=== PATIENT | male | born 1975 | race African-American/Black ===

== ENCOUNTER 2019-11-08 12:33 | Inpatient (IN) | payer OTHER ==
--- NOTE | 2019-11-08 14:05 | ER Document Report ---
ED Medical Screen (RME) - General Chief Complaint: Chest Pain Stated Complaint: COUGHING UP BLOOD Time Seen by Provider: 11/08/19 14:00 Mode of Arrival: Ambulatory Information source: Patient Notes: 44-year-old male presents to ED for right flank/chest pain for a week. He states he has been coughing up some blood. He does have a history of a pulmonary emboli. He does not smoke does drink on weekends does not use any illicit drugs. He is alert oriented respirations regular nonlabored at this time. Blood and CT have been ordered. I have greeted and performed a rapid initial assessment of this patient. A comprehensive ED assessment and evaluation of the patient, analysis of test results and completion of medical decision making process will be conducted by an additional ED providers. TRAVEL OUTSIDE OF THE [place] IN LAST 30 DAYS: No - Related Data Allergies/Adverse Reactions: No Known Allergies Allergy (Verified 11/08/19 13:59) Past Medical History - Past Medical History Cardiac Medical History: Reports: Hx Pulmonary Embolism Past Surgical History: Reports: Hx Orthopedic Surgery - Immunizations Hx Diphtheria, Pertussis, Tetanus Vaccination: No - Patient does not know when his last tetanus shot was Physical Exam - Vital signs Vitals: Temp Pulse Resp BP Pulse Ox 99.0 F 102 H 16 114/65 96 11/08/19 13:06 11/08/19 13:06 11/08/19 13:06 11/08/19 13:06 11/08/19 13:06 Course - Vital Signs Vital signs: Temp Pulse Resp BP Pulse Ox 99.0 F 102 H 16 114/65 96 11/08/19 13:06 11/08/19 13:06 11/08/19 13:06 11/08/19 13:06 11/08/19 13:06
[2019-11-08 15:08] LABS: ABSOLUTE EOSINOPHILS # (AUTO) 0.2 10^3/uL (0.0-0.6); ABSOLUTE LYMPHOCYTES (AUTO) 1.8 10^3/uL (0.5-4.7); ABSOLUTE MONOCYTES (AUTO) 0.8 10^3/uL (0.1-1.4); ABSOLUTE NEUT (AUTO) 5.7 10^3/uL (1.7-8.2); BASOPHILS % (AUTO) 0.4 % (0-2); EOSINOPHILS % (AUTO) 1.9 % (0-6); HEMOGLOBIN 12.8 g/dL (13.5-17.0); LYMPHOCYTES % (AUTO) 20.9 % (13-45); MEAN CORPUSCULAR HEMOGLOBIN 26.1 pg (27.0-33.4); MEAN CORPUSCULAR HGB CONC 32.8 g/dL (32.0-36.0); MEAN CORPUSCULAR VOLUME 79 fl (80-97); MONOCYTES % (AUTO) 9.2 % (3-13); PLATELET COUNT 438 10^3/uL (150-450); RED BLOOD COUNT 4.91 10^6/uL (4.35-5.55); RED CELL DISTRIBUTION WIDTH 15.3 % (11.5-14.0); SEGMENTED NEUTROPHILS % (AUTO) 67.6 % (42-78); TOTAL CELLS COUNTED % (AUTO) 100 %; WHITE BLOOD COUNT 8.5 10^3/uL (4.0-10.5)
[2019-11-08 15:12] LABS: INTERNATIONAL RATION (INR) 1.07; PROTHROMBIN TIME 14.1 SEC (11.4-15.4)
[2019-11-08 15:13] LABS: PARTIAL THROMBOPLASTIN TIME 33.8 SEC (23.5-35.8)
[2019-11-08 15:31] LABS: ALBUMIN 3.8 g/dL (3.5-5.0); ALKALINE PHOSPHATASE 138 U/L (38-126); ANION GAP 7 (5-19); ASPARTATE AMINO TRANSFERASE 68 U/L (17-59); BILIRUBIN,TOTAL 0.8 mg/dL (0.2-1.3); BLOOD UREA NITROGEN 10 mg/dL (7-20); CALCIUM 9.1 mg/dL (8.4-10.2); CARBON DIOXIDE 28 mmol/L (22-30); CHLORIDE 103 mmol/L (98-107); GLUCOSE 100 mg/dL (75-110); POTASSIUM 4.6 mmol/L (3.6-5.0); TOTAL PROTEIN 7.9 g/dL (6.3-8.2)
--- NOTE | 2019-11-08 16:35 | RADIOLOGY REPORT (SQ) ---
EXAM DESCRIPTION: CTA CHEST IMAGES COMPLETED DATE/TIME: 11/08/2019 4:03 pm REASON FOR STUDY: Chest pain right side with hx of pulmonary emboli COMPARISON: None. TECHNIQUE: CT scan of the chest performed using helical scanning technique with dynamic intravenous contrast injection. Images reviewed with lung, soft tissue and bone windows. Reconstructed coronal and sagittal MPR images reviewed. Additional 3 dimensional post-processing performed to develop Maximal Intensity Projection images (GA P). All images stored on PACS. All CT scanners at this facility use dose modulation, iterative reconstruction, and/or weight based d osing when appropriate to reduce radiation dose to as low as reasonably achievable (ALARA). [facility]: Dose Right [facility]: CareDose [facility]: Dose Right [facility]: Teradose 4D [facility]: [employer] CONTRAST TYPE AND DOSE: contrast/concentration: Isovue 350.00 mmol/ml; Total Contrast Delivered: 71. 0 ml; Total Saline Delivered: 40.2 ml Contrast bolus adequate for pulmonary arteries and aorta. RENAL FUNCTION: None required. The patient is less than 50 years old. RADIATION DOSE: CT Rad equipment meets quality standard of care and radiation dose reduction techniq ues were employed. CTDIvol: 13.2 - 21.7 mGy. DLP: 868 mGy-cm. . LIMITATIONS: None. FINDINGS: LUNGS AND PLEURA: Diffuse rounded airspace opacity in a predominantly peripheral distribut ion with an apparent apical basilar gradient. No pleural effusion. No pneumothorax. AORTA AND GREAT VESSELS: No aneurysm. No dissection. HEART: No pericardial effusion. No significant coronary artery calcifications. PULMONARY ARTERIES: Multiple acute segmental to subsegmental pulmonary emboli are seen of the bilater al lower lobes (right more so than left) no central thrombus or intracardiac thrombus demonstrated. No evidence of right heart strain. HILAR AND MEDIASTINAL STRUCTURES: There is a single prominent paraesophageal lymph node at the level of the gastroesophageal junction. No mediastinal masses. HARDWARE: None in the chest. UPPER ABDOMEN: No significant findings. Limited exam. THYROID AND OTHER SOFT TISSUES: No masses. No adenopathy. BONES: No acute or significant finding. 3D MIPS: Confirm above findings. OTHER: No other significant finding. IMPRESSION: 1. Bilateral lower lobe segmental de subsegmental acute pulmonary arterial thrombosis ( right greater than left). 2. This is superimposed upon a background of multifocal peripheral rounded airspace opacities, consi stent with multi lobar pneumonia. Given distribution and appearance, recommend consideration for aty pical etiologies to include viral (to include COVID) in treatment planning. COMMENT: Quality ID # [id number]: Final reports with documentation of one or more dose reduction techniques (e.g., Automated exposure control, adjustment of the mA and/or kV according to patient size, use of iterative reconstruction technique) TECHNICAL DOCUMENTATION: JOB ID: [id number] 2010 [employer]- All Rights Reserved Reading location - IP/workstation name: [email or web address]
[2019-11-08] MEDS ORDERED: AZITHROMYCIN INJ 500 MG VIAL IV ONE (17:17)
[2019-11-08] MEDS ORDERED: CEFTRIAXONE 1 GM/D5W RTU 1 GM/50 ML RTUPB IV ONE (17:17)
[2019-11-08] MEDS ORDERED: HEPARIN SODIUM,PORCINE/D5W 25,000 UNIT/250 ML RTUINJ IV PRN (17:17)
--- NOTE | 2019-11-08 18:07 | ER Document Report ---
ED General - General Chief Complaint: Chest Pain Stated Complaint: COUGHING UP BLOOD Time Seen by Provider: 11/08/19 14:00 Mode of Arrival: Ambulatory Notes: 44 year old male presents to the ED complaining of 1 week of right sided chest pain associated with 2-3 weeks of cough and slight hemoptysis that he describes as small little sprinkles of blood on the tissue. This blood started 1 week ago along with the chest pain. Denies any shortness of breath, denies any fatigue. Admits a small amount of diarrhea. Has not been tested for coronavirus. Patient does have a remote history of a PE provoked by surgery in 2014. Not currently on anticoagulants. TRAVEL OUTSIDE OF THE [place] IN LAST 30 DAYS: No - Related Data Allergies/Adverse Reactions: No Known Allergies Allergy (Verified 11/08/19 13:59) Past Medical History - General Information source: Patient - Social History Smoking Status: Never Smoker Chew tobacco use (# tins/day): No Frequency of alcohol use: Occasional Drug Abuse: None Family History: Reviewed & Not Pertinent - Past Medical History Cardiac Medical History: Reports: Hx Pulmonary Embolism Past Surgical History: Reports: Hx Orthopedic Surgery - Immunizations Hx Diphtheria, Pertussis, Tetanus Vaccination: No - Patient does not know when his last tetanus shot was Review of Systems - Review of Systems Constitutional: No symptoms reported EENT: No symptoms reported Cardiovascular: See HPI, Chest pain Respiratory: See HPI, Cough, Hurts to breathe, Hemoptysis Gastrointestinal: See HPI, Diarrhea -: Yes All other systems reviewed and negative Physical Exam - Vital signs Vitals: Temp Pulse Resp BP Pulse Ox 99.0 F 102 H 16 114/65 96 11/08/19 13:06 11/08/19 13:06 11/08/19 13:06 11/08/19 13:06 11/08/19 13:06 Interpretation: Tachycardic - Notes Notes: GENERAL: Alert, interacts well. No acute distress. HEAD: Normocephalic, atraumatic EYES: Pupils equal, round and reactive to light, extraocular movements intact. ENT: Oral mucosa moist, tongue midline. NECK: Full range of motion, supple, trachea midline. LUNGS: Clear to auscultation bilaterally, no wheezes, rales or rhonchi, no respiratory distress, but complains of pain with deep breathing. HEART: Regular rate and rhythm, no murmurs, gallops, rubs. ABDOMEN: Soft, nontender, nondistended, bowel sounds present in all 4 quadrants. EXTREMITIES: Moves all 4 extremities spontaneously, no edema, radial and dorsalis pedis pulses 2/4 bilaterally. No cyanosis. NEUROLOGICAL: Alert and oriented x3, normal speech. PSYCH: Normal mood, normal affect. SKIN: Warm, Dry, normal turgor. Course - Re-evaluation Re-evalutation: 11/08/19 20:53 CBC shows very mild anemia with hemoglobin 12.8, coags normal, CMP shows elevated LFTs otherwise unremarkable, troponin detectable at 0.022 but this is negative. CTA of the chest shows multiple bilateral pulmonary emboli and pneumonia. Quite suspicious for COVID. Patient is already in isolation. Discussed case with Dr. Giles from the hospitalist service who is concerned that this patient need may need to be transferred to a tertiary center as he is already having some hemoptysis. I did call and discussed the case with Dr. Shearer a morning babysitter at [facility] who stated that pulmonology was not necessary to have in the hospital. He stated he did feel that yes if you start heparin the patient's bleeding may get worse but the treatment for massive hemoptysis in this patient would be intubation to protect his airway not bronchoscopy to localize the place of bleeding. He agrees with starting heparin. States that there would be no role for vascular surgery in this case either. I then called and discussed with Dr. Caal who is the provider engagement executive hospitalist, Dr. Caal is worried that if we start the heparin the patient will develop further hemoptysis and potentially need to be intubated. Requested that I discussed with the ICU. Discussed case with Boyd Murillo the ICU PA who agrees to accept the patient to the account executive agribusiness service for close monitoring for the first 12 hours of heparin. - Vital Signs Vital signs: Temp Pulse Resp BP Pulse Ox 99.0 F 102 H 22 H 107/57 L 97 11/08/19 13:06 11/08/19 13:06 11/08/19 21:03 11/08/19 21:03 11/08/19 21:03 - Laboratory Result Diagrams: 11/08/19 14:49 11/08/19 14:49 Laboratory results interpreted by me: 11/08/19 11/08/19 14:49 14:49 Hgb 12.8 L MCV 79 L MCH 26.1 L RDW 15.3 H AST 68 H ALT 208 H Alkaline Phosphatase 138 H - EKG Interpretation by Me Additional EKG results interpreted by me: 11/08/19 22:29 EKG shows sinus rhythm rate of 83, normal axis, normal intervals, T wave inversi ons in lead II, V3 through V6 per my interpretation. Discharge - Discharge Clinical Impression: Multifocal pneumonia Pulmonary emboli Qualifiers: Pulmonary embolism type: multiple subsegmental (without acute cor pulmonale) Qualified Code(s): I26.94 - Multiple subsegmental pulmonary emboli without acute cor pulmonale Condition: Fair Disposition: ADMITTED INPATIENT Admitting Provider: Apoorva (Fire Hydrant Operator) Unit Admitted: ICU
[2019-11-08] MEDS: HEPARIN SOD (PORCINE) 1,000 UNIT/ML 10 ML VIAL IV ONE ×2 (18:39→18:53)
[2019-11-08] MEDS ORDERED: HEPARIN SOD (PORCINE) 1,000 UNIT/ML 10 ML VIAL IV PRN (20:18)
[2019-11-08 22:37] LABS: APPEARANCE,URINE CLEAR; BILIRUBIN,URINE NEGATIVE (NEGATIVE); COLOR,URINE YELLOW; GLUCOSE, URINE NEGATIVE (NEGATIVE); KETONES,URINE NEGATIVE (NEGATIVE); LEUKOCYTE ESTERASE,URINE NEGATIVE (NEGATIVE); NITRITE,URINE NEGATIVE (NEGATIVE); PROTEIN,URINE NEGATIVE (NEGATIVE); URINE SPECIFIC GRAVITY 1.028; UROBILINOGEN,URINE NEGATIVE mg/dL (<2.0)
--- NOTE | 2019-11-09 02:21 | CRITICAL CARE ADMISSION REPORT ---
HPI Date:: 11/09/19 Time:: 00:00 Reason for ICU Reason:: Pulmonary Embolism, Hemoptysis Admission Date/Time & PCP: Admission Date/Time: 11/08/19 20:39 Primary Care Provider: HPI: 44-year-old male with recent COVID-19 infection diagnosed on 10/21/2019. Patient tolerated treatment at home for COVID-19 but then began to develop right-sided chest pain and what he describes as very mild hemoptysis which started 1 week ago. He decided to seek emergency care due to persistent chest pain. Patient also has a history of a provoked PE following surgery in 2014. He has not been on anticoagulants since. Patient's work-up for his chest pain included a chest CT which showed multiple acute segmental to subsegmental pulmonary emboli in the bilateral lower lobes as well as multifocal opacities consistent with multi lobar pneumonia. Clinically, Mr. Dsouza is stable, in no respiratory distress. He has no oxygen requirements and is asymptomatic other than mild to moderate pleuritic chest pain. He was initially referred to medicine for treatment of his pulmonary embolisms, however, given his risk of bleeding with pre-existing hemoptysis and heparin drip treatment, the Medicine team felt more comfortable with monitoring in the ICU. I have started Mr. Dsouza on a heparin drip and will observe overnight in the ICU for signs of worsening hemoptysis. History obtained from:: Patient, medical records - Diagnosis/Plan (1) Multifocal pneumonia Is this a current diagnosis for this admission?: Yes Plan: Patient was diagnosed with COVID-19 on 10/20/2019. I believe what we are seeing regarding his pneumonia is the convalescence of this viral process. I therefore do not believe that antibiotics are warranted at this time as the patient has been recovering well. (2) Pulmonary emboli Qualifiers: Pulmonary embolism type: multiple subsegmental (without acute cor pulmonale) Qualified Code(s): I26.94 - Multiple subsegmental pulmonary emboli without acute cor pulmonale Is this a current diagnosis for this admission?: Yes Plan: Bilateral lower segmental and subsegmental acute pulmonary embolisms seen on chest CT (right greater than left). No evidence of right heart strain mentioned on CT. Heparin drip ordered in ED. This event is most likely secondary to his [id number] infection as clotting issues seems to be common following this virus. I would therefore consider this a provoked event. PESI score: 52 (positive only for age + male sex) which is considered class I, very low risk. Patient is normotensive. Plan will be to obtain Pro-BNP. If normal, and no other signs of hemodynamic or oxygenation issues, heparin drip can be discontinued and patient can be started on direct anti-coagulant treatment. Past Medical History Cardiac Medical History: Reports: Pulmonary Embolism Psychiatric Medical History: Denies: Depression Hematology: Reports: Sickle Cell Disease Past Surgical History Past Surgical History: Reports: Orthopedic Surgery - ankle surgery, 2015 Social/Family History - Social History Smoking Status: Never Smoker Frequency of Alcohol Use: Social Hx Recreational Drug Use: No Drugs: None Hx Prescription Drug Abuse: No - Medication/Allergies Home Medications: No Home Medications 11/08/19 Allergies/Adverse Reactions: No Known Allergies Allergy (Verified 11/08/19 13:59) Review of Systems Review of Systems: Patient complains of cough and right pleuritic chest pain. He denies shortness of breath, leg or calf pain, and can ambulate comfortably. Constitutional: PRESENT: as per HPI Cardiovascular: PRESENT: chest pain. ABSENT: dyspnea on exertion Respiratory: PRESENT: cough, hemoptysis - Mild hemoptysis Physical Exam Vital Signs: Temp Pulse Resp BP Pulse Ox 99.6 F 93 27 H 127/81 H 97 11/08/19 23:41 11/08/19 23:41 11/08/19 23:41 11/08/19 23:41 11/08/19 23:41 Intake & Output 11/07/19 11/08/19 11/09/19 06:59 06:59 06:59 Intake Total 50 Balance 50 Weight 112 kg Weight/Height Weight 112 kg Height 6 ft 1 in General appearance: PRESENT: no acute distress, cooperative Head exam: PRESENT: atraumatic, normocephalic Eye exam: PRESENT: EOMI, PERRLA Ear exam: PRESENT: normal external ear exam. ABSENT: bleeding, drainage Mouth exam: PRESENT: moist, neck supple, tongue midline Neck exam: PRESENT: full ROM. ABSENT: carotid bruit, JVD Respiratory exam: PRESENT: chest wall tenderness, rhonchi. ABSENT: accessory muscle use Cardiovascular exam: PRESENT: RRR, +S1, +S2 Pulses: PRESENT: normal carotid pulses, +2 pedal pulses bilateral Vascular exam: PRESENT: normal capillary refill GI/Abdominal exam: PRESENT: normal bowel sounds Extremities exam: ABSENT: calf tenderness, joint swelling, pedal edema, tenderness Musculoskeletal exam: PRESENT: ambulatory, full ROM, normal inspection Neurological exam: PRESENT: alert, awake, oriented to person, oriented to place, oriented to time, oriented to situation, CN II-XII grossly intact. ABSENT: motor sensory deficit Psychiatric exam: PRESENT: appropriate affect Skin exam: PRESENT: normal color Laboratory/Radiographs Laboratory Results: 11/08/19 14:49 11/08/19 14:49 11/08/19 11/08/19 11/08/19 14:49 14:49 22:20 WBC 8.5 RBC 4.91 Hgb 12.8 L Hct 39.0 MCV 79 L MCH 26.1 L MCHC 32.8 RDW 15.3 H Plt Count 438 Seg Neutrophils % 67.6 Sodium 138.3 Potassium 4.6 Chloride 103 Carbon Dioxide 28 Anion Gap 7 BUN 10 Creatinine 1.14 Est GFR ( Amer) > 60 Glucose 100 Calcium 9.1 Total Bilirubin 0.8 AST 68 H Alkaline Phosphatase 138 H Total Protein 7.9 Albumin 3.8 Lipase 101.4 Urine Color YELLOW Urine Appearance CLEAR Urine pH 6.0 Ur Specific [place] 1.028 Urine Protein NEGATIVE Urine Glucose (UA) NEGATIVE Urine Ketones NEGATIVE Urine Blood NEGATIVE Urine Nitrite NEGATIVE Ur Leukocyte Esterase NEGATIVE Urine WBC (Auto) 0 11/08/19 14:49 Troponin I 0.022 Impressions: Chest/Abdomen CTA 11/08/19 14:01 IMPRESSION: 1. Bilateral lower lobe segmental de subsegmental acute pulmonary arterial thrombosis (right greater than left). 2. This is superimposed upon a background of multifocal peripheral rounded airspace opacities, consistent with multi lobar pneumonia. Given distribution and appearance, recommend consideration for atypical etiologies to include viral (to include COVID) in treatment planning. All labs, radiographs, diagnostic studies and EKGs were personally reviewed: Yes In addition, reports of radiographic and diagnostic studies were read: Yes Critical Time Critical Time (minutes): 40 -: The care of a critically ill patient is dynamic. This note represents a static moment in the admission process. Orders and treatments may be given sim ultaneously and urgently, and time is not sales representative gas service of the treatment process. This patient requires Critical Care secondary to life threatening organ or limb dysfunction. Without Critical Care services, the patient is at risk for increased mortality and morbidity.
[2019-11-09] MEDS ORDERED: GUAIFENESIN 600 MG TABLET.SA PO ONE (02:57)
[2019-11-09 06:48] LABS: HEMATOCRIT 34.6 % (37.9-51.0); HEMOGLOBIN 11.6 g/dL (13.5-17.0); MEAN CORPUSCULAR HEMOGLOBIN 26.2 pg (27.0-33.4); MEAN CORPUSCULAR HGB CONC 33.6 g/dL (32.0-36.0); MEAN CORPUSCULAR VOLUME 78 fl (80-97); PLATELET COUNT 352 10^3/uL (150-450); RED BLOOD COUNT 4.44 10^6/uL (4.35-5.55); WHITE BLOOD COUNT 8.8 10^3/uL (4.0-10.5)
[2019-11-09 07:15] LABS: ALBUMIN 3.5 g/dL (3.5-5.0); ALKALINE PHOSPHATASE 124 U/L (38-126); ASPARTATE AMINO TRANSFERASE 55 U/L (17-59); BILIRUBIN,DIRECT 0.1 mg/dL (0.0-0.4); BILIRUBIN,TOTAL 0.9 mg/dL (0.2-1.3); BLOOD UREA NITROGEN 9 mg/dL (7-20); CALCIUM 8.8 mg/dL (8.4-10.2); CARBON DIOXIDE 27 mmol/L (22-30); GLUCOSE 108 mg/dL (75-110); POTASSIUM 4.5 mmol/L (3.6-5.0); TOTAL PROTEIN 7.3 g/dL (6.3-8.2)
--- NOTE | 2019-11-09 07:17 | EKG REPORT ---
SEVERITY:- ABNORMAL ECG - SINUS RHYTHM NONSPECIFIC T ABNORMALITIES, ANT-LAT LEADS : Confirmed by: Víctor Sotelo MD 09-Nov-2019 07:16:36
[2019-11-09 07:21] LABS: ANION GAP 5 (5-19); CHLORIDE 104 mmol/L (98-107)
--- NOTE | 2019-11-09 08:03 | RADIOLOGY REPORT (SQ) ---
EXAM DESCRIPTION: CHEST SINGLE VIEW IMAGES COMPLETED DATE/TIME: 11/09/2019 6:16 am REASON FOR STUDY: Pulmonary Embolism, Covid-19 COMPARISON: 11/08/2019 CT EXAM PARAMETERS: NUMBER OF VIEWS: One view. TECHNIQUE: Single frontal radiographic view of the chest acquired. RADIATION DOSE: NA LIMITATIONS: None. FINDINGS: LUNGS AND PLEURA: Known multifocal parenchymal opacities are less conspicuous by radiograp hy. No new focal consolidation. No pleural effusion. No pneumothorax. MEDIASTINUM AND HILAR STRUCTURES: No masses. Contour normal. HEART AND VASCULAR STRUCTURES: Heart normal in size. Normal vasculature. BONES: No acute findings. HARDWARE: None in the chest. OTHER: No other significant finding. IMPRESSION: Given differences in modality, essentially stable pulmonary examination. TECHNICAL DOCUMENTATION: JOB ID: [id number] 2010 [employer]- All Rights Reserved Reading location - IP/workstation name: [email or web address]
[2019-11-09] MEDS ORDERED: APIXABAN 5 MG TABLET PO SCH (10:00)
[2019-11-09] MEDS ORDERED: GUAIFENESIN 600 MG TABLET.SA PO SCH (10:00)
[2019-11-09] MEDS ORDERED: APIXABAN 2.5 MG TABLET PO SCH (10:00)
[2019-11-09] MEDS ORDERED: RIVAROXABAN 10 MG TABLET PO SCH (12:00)
[2019-11-09 14:41] VITALS: BP 109/66
--- NOTE | 2019-11-09 16:15 | XCELERA REPORT ---
[address] [address] Transthoracic Echocardiogram Report Name: PROMISE KWON Age: 44 yrs Gender: Male : 1975 Patient Status: Inpatient Patient Location: ICU^604^A Study Date: 11/09/2019 10:37 AM Height: 73 in Weight: 246 lb BSA: 2.3 m2 Procedure: A two-dimensional transthoracic echocardiogram with color flow and Doppler was performed. Study Quality: Good. Reason For Study: Acute Pulmonary Embolism History: Acute Pulmonary Embolism. Ordering Physician: JADIEL DOUGLAS Performed By: Mirella Mancilla Interpretation Summary The left ventricle is normal in size. There is normal left ventricular wall thickness. LV EF is 65% Left ventricular systolic function is normal. Doppler measurements suggest normal left ventricular diastolic function The left ventricular wall motion is normal. There is no thrombus. No ASD ,VSD ,or PFO seen. The right ventricle is normal in size and function. The right atrium is normal. The left atrial size is normal. There is no evidence of mitral valve prolapse. There is no vegetation seen on the mitral valve. There is a mild amount of mitral regurgitation There is no aortic valve stenosis There is no LVOT obstruction. No aortic regurgitation is present. There is no tricuspid stenosis. There is a mild amount of tricuspid regurgitation Right ventricular systolic pressure is normal. RVSP is 25 to 30 mm of Hg , with RA mean of 0 to 5. There is no pulmonic valvular stenosis. The aortic root is normal size. There is no pericardial effusion. MMode/2D Measurements & Calculations RVDd: 3.6 cm LVIDd: 4.7 cm FS: 36.0 % Ao root diam: 3.5 cm IVSd: 0.91 cm LVIDs: 3.0 cm EDV(Teich): 101.7 ml Ao root area: 9.6 cm2 LVPWd: 0.90 cm ESV(Teich): 35.0 ml LA dimension: 2.6 cm EF(Teich): 65.6 % Doppler Measurements & Calculations MV E max darin: MV P1/2t max darin: Ao V2 max: LV V1 max P.3 cm/sec 95.3 cm/sec 119.4 cm/sec 4.3 mmHg MV A max darin: MV P1/2t: 62.9 msec Ao max P.7 mmHg LV V1 max: 63.2 cm/sec MVA(P1/2t): 3.5 cm2 104.1 cm/sec MV E/A: 1.5 MV dec slope: 443.5 cm/sec2 MV dec time: 0.21 sec PA V2 max: TR max darin: MV P1/2t-pr_phl: 82.9 cm/sec 249.8 cm/sec 62.9 msec PA max PG: TR max P.0 mmHg 2.8 mmHg Left Ventricle The left ventricle is normal in size. There is normal left ventricular wall thickness. LV EF is 65%. Left ventricular systolic function is normal. Doppler measurements suggest normal left ventricular diastolic function. The left ventricular wall motion is normal. There is no thrombus. No ASD ,VSD ,or PFO seen. Right Ventricle The right ventricle is normal in size and function. Atria The right atrium is normal. The left atrial size is normal. Mitral Valve There is no evidence of mitral valve prolapse. There is no vegetation seen on the mitral valve. There is no mitral valve stenosis. There is a mild amount of mitral regurgitation. Aortic Valve There is no aortic valvular vegetation. There is no aortic valve stenosis. There is no LVOT obstruction. No aortic regurgitation is present. Tricuspid Valve There is no tricuspid stenosis. There is a mild amount of tricuspid regurgitation. Right ventricular systolic pressure is normal. RVSP is 25 to 30 mm of Hg , with RA mean of 0 to 5. Pulmonic Valve There is no pulmonic valvular stenosis. There is no pulmonic valvular regurgitation. Great Vessels The aortic root is normal size. The inferior vena cava appeared small and collapsed with respiration (RAP 0-5 mmHg). Effusions There is no pericardial effusion. : JADIEL DOUGLAS, [place]
--- NOTE | 2019-11-09 16:53 | PDOC DISCHARGE SUMMARY ---
Impression - Admit/DC Date/PCP Admission Date/Primary Care Provider: 11/08/19 20:39 Discharge Date: 11/09/19 - Discharge Diagnosis (1) COVID-19 Is this a current diagnosis for this admission?: Yes (2) Pulmonary emboli Is this a current diagnosis for this admission?: Yes - Assessment Summary: This patient is a 44 yo man who says he has had COVID-19 for about 3 weeks. He developed vague chest and back pain yesterday and coughed up flecks of blood in sputum yesterday. He presented to the ED where a CTA showed segmental and subsegmental PEs. No other symptoms. No sign of R heart strain, EKG changes, SOB, dizziness. He was placed in the ICU as the hospitalist did not wish him placed on the regular floor. 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 He was on Xarelto for several months. He was on a heparin drip started in the ED but stopped this AM when he was placed back on Xarelto. He has had an echocardiogram showing no R ht strain. He has follow up and will be sent home om Xarelto - Additional Information Resuscitation Status: Full Code Discharge Diet: Regular Discharge Activity: Activity As Tolerated Prescriptions: Rivaroxaban [Xarelto 10 mg Tablet] 20 mg PO DAILY 30 Days #30 tablet Home Medications: Rivaroxaban [Xarelto 10 mg Tablet] 20 mg PO DAILY 30 Days #30 tablet 11/09/19 History of Present Illiness History of Present Illness: PROMISE KWON is a 44 year old male with history of PEs has new segmental and subsegmental PEs from COVID-19 diagnosed about 3 weeks ago. Minor hemoptysis no recurrence Hospital Course Hospital Course: He was initially on a heparin drip changed to Xarelto. On RA, No SOB, No cough, no pain able to walk without symptoms. Will be treated at home with Xarelto. Physical Exam Vital Signs: Temp Pulse Resp BP Pulse Ox 98.6 F 71 19 109/66 96 11/09/19 07:41 11/09/19 07:30 11/09/19 14:31 11/09/19 14:31 11/09/19 14:31 Intake & Output 11/08/19 11/09/19 11/10/19 06:59 06:59 06:59 Intake Total 50 188 Output Total 129 783 Balance -575 -562 Weight 112 kg General appearance: PRESENT: no acute distress, cooperative Head exam: PRESENT: atraumatic, normocephalic Eye exam: PRESENT: conjunctiva pink, EOMI, PERRLA. ABSENT: scleral icterus Ear exam: PRESENT: normal external ear exam Mouth exam: PRESENT: moist, tongue midline Respiratory exam: PRESENT: clear to auscultation bill. ABSENT: rales, rhonchi, wheezes Cardiovascular exam: PRESENT: RRR. ABSENT: diastolic murmur, rubs, systolic murmur GI/Abdominal exam: PRESENT: normal bowel sounds, soft. ABSENT: distended, guarding, mass, organolmegaly, rebound, tenderness Rectal exam: PRESENT: deferred Extremities exam: PRESENT: full ROM. ABSENT: calf tenderness, clubbing, pedal edema Musculoskeletal exam: PRESENT: normal inspection Neurological exam: PRESENT: alert, awake, oriented to person, oriented to place, oriented to time, oriented to situation, CN II-XII grossly intact. ABSENT: motor sensory deficit Psychiatric exam: PRESENT: appropriate affect, normal mood. ABSENT: homicidal ideation, suicidal ideation Skin exam: PRESENT: dry, intact, warm. ABSENT: cyanosis, rash Results Laboratory Results: WBC 8.8 10^3/uL (4.0-10.5) 11/09/19 06:40 RBC 4.44 10^6/uL (4.35-5.55) 11/09/19 06:40 Hgb 11.6 g/dL (13.5-17.0) L 11/09/19 06:40 Hct 34.6 % (37.9-51.0) L 11/09/19 06:40 MCV 78 fl (80-97) L 11/09/19 06:40 MCH 26.2 pg (27.0-33.4) L 11/09/19 06:40 MCHC 33.6 g/dL (32.0-36.0) 11/09/19 06:40 RDW 15.0 % (11.5-14.0) H 11/09/19 06:40 Plt Count 352 10^3/uL (150-450) 11/09/19 06:40 Lymph % (Auto) 20.9 % (13-45) 11/08/19 14:49 [place] % (Auto) 9.2 % (3-13) 11/08/19 14:49 Eos % (Auto) 1.9 % (0-6) 11/08/19 14:49 Baso % (Auto) 0.4 % (0-2) 11/08/19 14:49 Absolute Neuts (auto) 5.7 10^3/uL (1.7-8.2) 11/08/19 14:49 Absolute Lymphs (auto) 1.8 10^3/uL (0.5-4.7) 11/08/19 14:49 Absolute Monos (auto) 0.8 10^3/uL (0.1-1.4) 11/08/19 14:49 Absolute Eos (auto) 0.2 10^3/uL (0.0-0.6) 11/08/19 14:49 Absolute Basos (auto) 0.0 10^3/uL (0.0-0.2) 11/08/19 14:49 Seg Neutrophils % 67.6 % (42-78) 11/08/19 14:49 PT 14.1 SEC (11.4-15.4) 11/08/19 14:49 INR 1.07 11/08/19 14:49 APTT 107.9 SEC (23.5-35.8) H D 11/09/19 06:40 Sodium 135.8 mmol/L (137-145) L 11/09/19 06:40 Potassium 4.5 mmol/L (3.6-5.0) 11/09/19 06:40 Chloride 104 mmol/L (98-107) 11/09/19 06:40 Carbon Dioxide 27 mmol/L (22-30) 11/09/19 06:40 Anion Gap 5 (5-19) 11/09/19 06:40 BUN 9 mg/dL (7-20) 11/09/19 06:40 Creatinine 1.06 mg/dL (0.52-1.25) 11/09/19 06:40 Est GFR ( Amer) > 60 (>60) 11/09/19 06:40 Est GFR (MDRD) Non-Af > 60 (>60) 11/09/19 06:40 Glucose 108 mg/dL (75-110) 11/09/19 06:40 Calcium 8.8 mg/dL (8.4-10.2) 11/09/19 06:40 Total Bilirubin 0.9 mg/dL (0.2-1.3) 11/09/19 06:40 Direct Bilirubin 0.1 mg/dL (0.0-0.4) 11/09/19 06:40 Neonat Total Bilirubin Not Reportable 11/09/19 06:40 Neonat Direct Bilirubin Not Reportable 11/09/19 06:40 Neonat Indirect Bili Not Reportable 11/09/19 06:40 AST 55 U/L (17-59) 11/09/19 06:40 ALT 169 U/L (<50) H 11/09/19 06:40 Alkaline Phosphatase 124 U/L (38-126) 11/09/19 06:40 Troponin I 0.022 ng/mL 11/08/19 14:49 NT-Pro-B Natriuret Pep 40 pg/mL (<125) 11/09/19 06:40 Total Protein 7.3 g/dL (6.3-8.2) 11/09/19 06:40 Albumin 3.5 g/dL (3.5-5.0) 11/09/19 06:40 Lipase 101.4 U/L (23-300) 11/08/19 14:49 Urine Color YELLOW 11/08/19 22:20 Urine Appearance CLEAR 11/08/19 22:20 Urine pH 6.0 (5.0-9.0) 11/08/19 22:20 Ur Specific [place] 1.028 11/08/19 22:20 Urine Protein NEGATIVE mg/dL (NEGATIVE) 11/08/19 22:20 Urine Glucose (UA) NEGATIVE mg/dL (NEGATIVE) 11/08/19 22:20 Urine Ketones NEGATIVE mg/dL (NEGATIVE) 11/08/19 22:20 Urine Blood NEGATIVE (NEGATIVE) 11/08/19 22:20 Urine Nitrite NEGATIVE (NEGATIVE) 11/08/19 22:20 Urine Bilirubin NEGATIVE (NEGATIVE) 11/08/19 22:20 Urine Urobilinogen NEGATIVE mg/dL (<2.0) 11/08/19 22:20 Ur Leukocyte Esterase NEGATIVE (NEGATIVE) 11/08/19 22:20 Urine WBC (Auto) 0 /HPF 11/08/19 22:20 Urine Ascorbic Acid 20 (NEGATIVE) H 11/08/19 22:20 11/08/19 11/09/19 14:49 06:40 Troponin I 0.022 NT-Pro-B Natriuret Pep 40 EKG Comments: NSR, nonspecific ST changes Impressions: Chest/Abdomen CTA 11/08/19 14:01 IMPRESSION: 1. Bilateral lower lobe segmental de subsegmental acute pulmonary arterial thrombosis (right greater than left). 2. This is superimposed upon a background of multifocal peripheral rounded airspace opacities, consistent with multi lobar pneumonia. Given distribution and appearance, recommend consideration for atypical etiologies to include viral (to include COVID) in treatment planning. Chest X-Ray 11/09/19 06:00 IMPRESSION: Given differences in modality, essentially stable pulmonary examination. Plan Health Concerns: Propogation of PEs. Worsening of Covid. Plan of Treatment: Xarelto 20 mg. a day X 3 months at least. Goals: Back to baseline function. Critical Time: 40 Level of Care: MEDICAL Stroke Is this a Stroke Patient?: No Acute Heart Failure - Is this a Heart Failure Patient?: No
--- NOTE | 2019-11-17 10:31 | Progress Note ---
Provider Note Provider Note: This is written as an addendum to a discharge summary for 11/09/2019. The patient had multiple PEs and is COVID positive for about 3 weeks by his own admission. It is his second bout od PE, the first after ankle surgery in 2012. It is presumed this is the second provoked PE with COVID being the inciting factor.
== END 2019-11-09 18:50 | disposition home or self-care (01) | DRG 176 ==
LOC: ER 12:33 → EH 20:39 → ICU 23:45
PROVIDERS: ADMIT Anesthesiology; ATTEND Anesthesiology
DX: I26.99 Other pulmonary embolism without acute cor pulmonale (principal); B94.8 Sequelae of other specified infectious and parasitic diseases; Z86.711 Personal history of pulmonary embolism
CPT/HCPCS: 36415; 71045; 71275; 80053; 81001; 83690; 83880; 84484; 85025; 85027; 85610; 85730; 87040; 87077; 87150; 87186; 87635; 93005; 93010; 93306; 96365; 96367; 99238; 99285; 99291; C9803; J0456; J0696; J1644; J3490